=== PATIENT | female | born 1980 | race Hispanic/Latino ===

== ENCOUNTER 2020-05-16 11:25 | Emergency (ER) | payer BC | END 2020-05-16 11:53 | disposition home or self-care (01) | LOC: MADERS 11:25 | DX: T63.2X1A Toxic effect of venom of scorpion, accidental (unintentional), initial encounter (principal); F41.9 Anxiety disorder, unspecified; Z79.899 Other long term (current) drug therapy | CPT/HCPCS: 99283 ==

== ENCOUNTER 2020-08-15 05:47 | Emergency (ER) | payer BC ==
[2020-08-15 06:08] LABS: Bilirubin Negative (Negative); Blood, Urine Large (Negative); Clarity Slightly Cloudy (Clear); Glucose, Urine (Dipstick) 100 mg/dL (Negative); Ketone, Urine 40 mg/dL (Negative); Leukocyte Large (Negative); Nitrite Positive (Negative); Protein, Urine (Dipstick) > or equal to 300 mg/dL (Neg-Trace)
[2020-08-15] MEDS ORDERED: Ketorolac Tromethamine 30 MG/ML VIAL ONE (06:17)
[2020-08-15 06:18] LABS: Bacteria/HPF 3+ HPF (None Seen); RBC/HPF 21-50 HPF (0-3); WBC/HPF 21-50 HPF (0-3)
[2020-08-15 06:21] LABS: Pregnancy Test - Urine (BHCG) Negative (Negative); Pregu Control Background? CLEAR/WHITE (CLR/WHITE); Pregu Control Bar Appear? YES (CONTROL BAR)
[2020-08-15 06:24] LABS: Hemoglobin 13.6 g/dL (12.0-16.0); Mean Corpuscular HGB CONC 35.2 g/dL (32.0-36.0); Mean Corpuscular Hemoglobin 30.2 pg (27.0-31.0); Mean Corpuscular Volume 85.8 fL (78.0-98.0); Mean Platelet Volume 8.2 fL (7.4-10.4); Platelet Count 212 thou/uL (130-400); Red Blood Cell (RBC) Count 4.51 mill/uL (4.20-5.40); White Blood Cell (WBC) Count 11.8 thou/uL (4.8-10.8)
[2020-08-15 06:43] LABS: ALT (SGPT) 18 U/L (8-55); AST (SGOT) 14 U/L (5-34); Albumin 4.1 g/dL (3.5-5.0); Alkaline Phosphatase 41 U/L (40-110); Anion Gap 15 mmol/L (10-20); BUN (Urea Nitrogen) 7 mg/dL (7.0-18.7); Bilirubin, Total 0.9 mg/dL (0.2-1.2); Calc. Creatinine Clearance 0 mL/min (70-130); Calcium 8.8 mg/dL (7.8-10.44); Carbon Dioxide 23 mmol/L (22-29); Chloride 106 mmol/L (98-107); Globulin 2.9 g/dL (2.4-3.5); Glucose 96 mg/dL (70-105); Lipase 14 U/L (8-78); Potassium 3.9 mmol/L (3.5-5.1); Sodium 140 mmol/L (136-145)
[2020-08-15] MEDS ORDERED: cefTRIAXone\\ROCEPHIN 1 GM VIAL ONE (07:28)
[2020-08-15] MEDS ORDERED: Sodium Chloride 0.9% 1,000 ML BAG ONE (07:39)
--- NOTE | 2020-08-15 07:46 | CT ---
PRELIMINARY REPORT/[facility]/EMERGENCY AFTER HOURS PROCEDURE: EXAM: CT Abdomen and Pelvis Without Intravenous Contrast CLINICAL HISTORY: RLQ PAIN RADIATING TO RT FLANK W PAINFUL URINATION X 3 DAYS TECHNIQUE: Axial computed tomography images of the abdomen and pelvis without intravenous contrast. CONTRAST: None. COMPARISON: None provided. FINDINGS: LUNG BASES: No basilar airspace consolidation or pleural effusion. LIVER: Unremarkable. GALLBLADDER AND BILE DUCTS: Status post cholecystectomy. PANCREAS: Unremarkable. SPLEEN: Unremarkable. ADRENAL GLANDS: Unremarkable. KIDNEYS, URETERS, AND BLADDER: No hydronephrosis or nephrolithiasis. Mild right periureteral fat stra nding. No ureteral stone visualized. Mild thickening of the urinary bladder, which may be partially due to under distention. STOMACH AND BOWEL: Colonic diverticulosis without evidence of diverticulitis. No bowel obstruction. APPENDIX: Normal appendix. PERITONEUM: No free fluid. No free air. LYMPH NODES: No lymphadenopathy. REPRODUCTIVE: Unremarkable as visualized. VASCULATURE: No aortic aneurysm. ABDOMINAL WALL AND SOFT TISSUES: Unremarkable. BONES: No fracture or suspicious osseous abnormality. IMPRESSION: Mild right periureteral fat stranding. No ureteral stone visualized. Mild thickening of the urinary bladder, which may be partially due to under distention. Findings may be seen in the setting of infection, such as cystitis and an ascending urinary tract infection, versus a recently pa ssed stone. Correlation with urinalysis may be helpful for further evaluation. ELECTRONICALLY SIGNED BY: Rachel Toribio MD Aug 15, 2020 7:13:26 AM [employer] FINAL REPORT CT ABDOMEN AND PELVIS WITHOUT CONTRAST: DATE: 08/15/2020. COMPARISON: None. HISTORY: Right lower quadrant pain radiating to the right flank with painful urination for 3 days. FINDINGS: I agree with the preliminary report. The lack of contrast media limits assessment of the viscera, bow el, vascular structures, and for lymphadenopathy. Imaged lung bases are unremarkable. No free intraperitoneal air or fluid. Liver, spleen, pancreas, adrenal glands, and kidneys demonstrate no sig nificant abnormality. No nephrolithiasis or evidence of obstructive uropathy. There is mild stranding of the fat adjacent to a nondilated right ureter. There is mild stranding of the fat adjace nt to a decompressed urinary bladder. Limited evaluation of the bowel demonstrates no acute findings. The appendix is unremarkable. Limited assessment of the retroperitoneum demonstrates no adenopathy. Review of the osseous structure s demonstrates no acute findings. IMPRESSION: Mild stranding of the fat adjacent to a nondilated right ureter and adjacent to the urinary bladder. Findings may signify inflammatory fat stranding on the basis of infection. The sequela of recently passed stone cannot be fully excluded. Clinical correlation with urinalysis advised. Transcribed Date/Time: 08/15/2020 8:22 AM
[2020-08-15 20:15] LABS: Manual Diff?? YES
[2020-08-15 20:17] LABS: Band 2 % (5-11); Lymphocytes 30 % (21-51); Monocytes 7 % (0-10); Reactive Lymphocytes 3 % (0-10)
[2020-08-15 20:18] LABS: Eosinophils 2 % (0-10); Giant Platelets SLIGHT; Large Platelets MODERATE
[2020-08-15 20:19] LABS: Neutrophil 56 % (42-75)
== END 2020-08-15 07:56 | disposition home or self-care (01) ==
LOC: MADERS 05:47
DX: N39.0 Urinary tract infection, site not specified (principal); J30.2 Other seasonal allergic rhinitis; Z79.899 Other long term (current) drug therapy
CPT/HCPCS: 74176; 80053; 81003; 81015; 81025; 83690; 85025; 87077; 87086; 87186; 96374; 96375; J0696; J1885; J7050

== ENCOUNTER 2021-06-04 16:35 | Emergency (ER) | payer BC, SELFPAY ==
[2021-06-04] MEDS ORDERED: Mag-Al Plus 1200 MG/1200 MG/120 MG/30 ML UDCUP ONE (17:13)
[2021-06-04] MEDS ORDERED: Lidocaine Viscous Sol 2% 15 ml UD Cup ONE (17:13)
== END 2021-06-04 18:00 | disposition home or self-care (01) ==
LOC: MADERS 16:35
DX: R10.13 Epigastric pain (principal); R11.2 Nausea with vomiting, unspecified; R19.7 Diarrhea, unspecified
CPT/HCPCS: 99284

== ENCOUNTER 2022-09-23 20:20 | Emergency (ER) | payer BC ==
[2022-09-23] MEDS ORDERED: Dexamethasone 4 MG TAB ONE (20:48)
[2022-09-23] MEDS ORDERED: Ipratropium/Albuterol 3 ML NEB ONE (20:48)
[2022-09-23] MEDS ORDERED: Magnesium 2 GM/50 ML BAG (IN WATER) ONE (20:48)
[2022-09-23 21:08] LABS: #Basophils 0.1 thou/uL (0.0-0.2); #Eosinphils 0.5 thou/uL (0.0-0.7); #Lymphocytes 3.2 thou/uL (1.20-3.40); #Monocytes 0.5 thou/uL (0.11-0.59); #Neutrophils 4.4 thou/uL (1.40-6.50); %Basophils 0.9 % (0.0-1.0); %Eosinophils 6.2 % (0.0-10.0); %Lymphocytes 36.4 % (21.0-51.0); %Monocytes 6.2 % (0.0-10.0); %Neutrophils 50.3 % (42.0-75.0); Hemoglobin 13.8 g/dL (12.0-16.0); Mean Corpuscular HGB CONC 35.5 g/dL (32.0-36.0); Mean Corpuscular Hemoglobin 30.2 pg (27.0-31.0); Mean Corpuscular Volume 85.1 fl (78.0-98.0); Mean Platelet Volume 8.4 fL (7.4-10.4); Platelet Count 228 10x3/uL (130-400); RBC Distribution Width 11.4 % (11.5-14.5); Red Blood Cell (RBC) Count 4.57 mill/uL (4.20-5.40); White Blood Cell (WBC) Count 8.7 10x3/uL (4.8-10.8)
[2022-09-23 21:28] LABS: ALT (SGPT) 21 U/L (8-55); AST (SGOT) 13 U/L (5-34); Albumin 3.9 g/dL (3.5-5.0); Alkaline Phosphatase 34 U/L (40-110); Anion Gap 14 mmol/L (10-20); BUN (Urea Nitrogen) 15 mg/dL (7.0-18.7); Bilirubin, Total 0.5 mg/dL (0.2-1.2); Calc. Creatinine Clearance 0 mL/min (70-130); Calcium 8.9 mg/dL (7.8-10.44); Carbon Dioxide 22 mmol/L (22-29); Chloride 108 mmol/L (98-107); Estimated GFR 89; Globulin 3.2 g/dL (2.4-3.5); Glucose 96 mg/dL (70-105); Potassium 2.9 mmol/L (3.5-5.1); Protein, Total 7.1 g/dL (6.0-8.3); Sodium 141 mmol/L (136-145)
[2022-09-23] MEDS ORDERED: Potassium Chloride 20 MEQ TAB ONE (21:49)
== END 2022-09-23 22:06 | disposition home or self-care (01) ==
LOC: MADERS 20:20
DX: J98.01 Acute bronchospasm (principal); J06.9 Acute upper respiratory infection, unspecified; E87.6 Hypokalemia
CPT/HCPCS: 71046; 80053; 85025; 87804; 94640; 96365; J3475; J7620; J8540

== ENCOUNTER 2023-07-13 17:28 | Emergency (ER) | payer BC, SELFPAY ==
[~2023-07-13 17:28] MED LIST: Iopamidol 370 76% 100 ML VIAL ONE
[2023-07-13 17:56] LABS: Bilirubin Negative (Negative); Blood, Urine Trace (Negative); Clarity Cloudy (Clear); Glucose, Urine (Dipstick) Negative (Negative); Ketone, Urine Negative (Negative); Leukocyte Negative (Negative); Nitrite Negative (Negative); Protein, Urine (Dipstick) Negative (Neg-Trace); Specific Gravity, Urine 1.025 (1.005-1.030); Urobilinogen 0.2 mg/dL (Less than 2)
[2023-07-13 17:58] LABS: Pregnancy Test - Urine (BHCG) Negative (Negative); Pregu Control Background? CLEAR/WHITE (CLR/WHITE); Pregu Control Bar Appear? YES (CONTROL BAR); Specific Gravity 1.025 (1.002-1.036)
[2023-07-13 18:03] LABS: CAUTI Indications for Culture Pelvic or flank pain; RBC/HPF 0-3 HPF (0-3); WBC/HPF 0-3 HPF (0-3)
[2023-07-13 18:04] LABS: Bacteria/HPF Rare-Few HPF (None Seen); Urine Culture Reflex No No
[2023-07-13 18:31] LABS: #Basophils 0.2 thou/uL (0.0-0.2); #Eosinphils 0.2 thou/uL (0.0-0.7); #Lymphocytes 2.4 thou/uL (1.20-3.40); #Monocytes 0.9 thou/uL (0.11-0.59); #Neutrophils 11.3 thou/uL (1.40-6.50); %Basophils 1.4 % (0.0-1.0); %Eosinophils 1.1 % (0.0-10.0); %Lymphocytes 15.8 % (21.0-51.0); %Monocytes 5.9 % (0.0-10.0); %Neutrophils 75.7 % (42.0-75.0); Hematocrit 39.7 % (36.0-47.0); Hemoglobin 13.7 g/dL (12.0-16.0); Mean Corpuscular HGB CONC 34.6 g/dL (32.0-36.0); Mean Corpuscular Volume 86.9 fl (78.0-98.0); Mean Platelet Volume 8.8 fL (7.4-10.4); Platelet Count 234 10x3/uL (130-400); RBC Distribution Width 12.1 % (11.5-14.5); Red Blood Cell (RBC) Count 4.57 mill/uL (4.20-5.40)
[2023-07-13 18:47] LABS: ALT (SGPT) 37 U/L (8-55); AST (SGOT) 20 U/L (5-34); Albumin 4.2 g/dL (3.5-5.0); Alkaline Phosphatase 56 U/L (40-110); Anion Gap 14 mmol/L (10-20); BUN (Urea Nitrogen) 10 mg/dL (7.0-18.7); Bilirubin, Total 0.6 mg/dL (0.2-1.2); Calc. Creatinine Clearance 0 mL/min (70-130); Calcium 9.3 mg/dL (7.8-10.44); Carbon Dioxide 21 mmol/L (22-29); Chloride 106 mmol/L (98-107); Estimated GFR 100; Globulin 3.4 g/dL (2.4-3.5); Glucose 109 mg/dL (70-105); Lipase 16 U/L (8-78); Magnesium 1.9 mg/dL (1.6-2.6); Potassium 3.8 mmol/L (3.5-5.1); Protein, Total 7.6 g/dL (6.0-8.3); Sodium 137 mmol/L (136-145)
[2023-07-13 18:55] LABS: Acetaminophen Less than 10 mcg/mL (10.0-30.0); Alcohol Less than 10.0 mg/dL (Less than 10); Salicylate Less than 8.0 mg/dL (15.0-30.0)
[2023-07-13] MEDS ORDERED: Sodium Chloride 0.9% 100 ML ONE (19:29)
[2023-07-13] MEDS ORDERED: Sodium Chloride 0.9% 1,000 ML ONE (19:29)
[2023-07-13] MEDS ORDERED: Piperacillin/Tazobactam 4.5 GM VIAL ONE (19:29)
[2023-07-13 20:06] LABS: Amphetamine Not Detected (NotDetected); Barbiturates Screen Not Detected (NotDetected); Benzodiazepine Screen Not Detected (NotDetected); Cocaine Metabolite Screen Not Detected (NotDetected); Methadone Not Detected (NotDetected); Methamphetamine Not Detected (NotDetected); Opiate Screen Not Detected (NotDetected); Oxycodone Screen Not Detected (NotDetected); Phencyclidine (PCP) Not Detected (NotDetected); THC/Cannabinoid Screen Not Detected (NotDetected); Tricyclic Screen Not Detected (NotDetected)
[2023-07-13] MEDS ORDERED: Ketorolac Tromethamine 30 MG/ML VIAL ONE (20:45)
== END 2023-07-13 22:13 | disposition home or self-care (01) ==
LOC: MADERS 17:28
DX: K52.9 Noninfective gastroenteritis and colitis, unspecified (principal); R00.0 Tachycardia, unspecified
CPT/HCPCS: 36415; 74177; 80053; 80306; 80307; 81001; 81025; 83605; 83690; 83735; 85025; 87040; 96361; 96365; 96375; J1885; J2543; J7050; Q9967